=== PATIENT | female | born 1980 | race Two or more races ===

== ENCOUNTER 2017-01-12 12:04 | Emergency (ER) | payer SELFPAY ==
[~2017-01-12] VITALS: Ht 172.7 cm; Wt 60.0 kg
[2017-01-12 12:06] VITALS: BP 105/57; PULSE 78; RESP 20; TEMP 97.8; O2SAT 100
--- NOTE | 2017-01-12 12:13 | PD ---
Physical Exam Date Seen by Provider: Jan 12, 2017 Time Seen by Provider: 12:09 Data Data Last Documented VS Vital Signs Date Time Temp Pulse Resp B/P Pulse Ox O2 Delivery O2 Flow Rate FiO2 01/12/17 12:06 97.8 78 20 105/57 100 Room Air [facility] Supervised Visit with MALLORIE: No Narrative Course 36 YO F with complaint of headache, right sided body pain since 7am. + nausea. - -vomiting. Endorses history of similar headaches. No focal neuro deficits. Vitals reviewed. Awaiting bed placement. Adele Thomas Jan 12, 2017 12:13
--- NOTE | 2017-01-12 13:27 | PD ---
HPI Chief Complaint: Headache Time Seen by Provider: 13:05 Travel History International Travel<30 days: No Contact w/Intl Traveler<30days: No Traveled to known affect area: No History of Present Illness HPI Patient comes in complaining of left frontal headache ongoing for 3 months. Patient reports associated photophobia and nausea. Patient denies any vomiting , radiation of the headache, chest pain, shortness breath, fevers, , loss or change in bowel or bladder, or numbness or tingling anywhere. Patient states headache will go away for approximately an hour at a time and then come back. Patient states she took Advil for it a couple months ago but has not taken any medication regularly as she does not like taking medication. Patient also has concerns over low back pain ongoing for a few months that radiates to her left lower extremity. Pain is worse certain movement. Patient denies anything making the pain better. Patient denies doing anything for this. Patient denies any recent falls, or loss or change in bowel or bladder. Patient states she is just wanting to get checked out for these. Patient was offered an shot blaster service of [employer], but is comfortable with staff interpreting for her. [facility] Past Medical History Medical History: Denies Significant Hx Tetanus Vaccination: < 5 Years Influenza Vaccination: No ?: Not LMP: 12/25/16 Past Surgical History Section: Yes (X2) Social History Alcohol Use: No Tobacco Use: No Allergies-Medications (Allergen,Severity, Reaction): Coded Allergies: No Known Allergies (Unverified , 01/12/17) Reported Meds & Prescriptions Reported Meds & Active Scripts Active Bactrim DS (Sulfamethoxazole-Trimethoprim) 800-160 Mg Tab 1 Tab PO BID Naprosyn (Naproxen) 500 Mg Tab 500 Mg PO Q12HR PRN Review of Systems Except as stated in HPI: all other systems reviewed are Neg Physical Exam Narrative GENERAL: Well-developed, well nourished, in no acute distress, and non-ill appearing. SKIN: Focused skin assessment warm and dry. HEAD: Atraumatic. Normocephalic. EYES: Pupils equal and round. EOMI. No scleral icterus. No injection or drainage. ENT: No nasal bleeding or discharge. Mucous membranes pink and moist. NECK: Trachea midline. Supple. No nuclear rigidity. CARDIOVASCULAR: Dorsal pulses 2+ intact and equal bilaterally. Capillary refill less than 2 seconds. No pedal edema. RESPIRATORY: No accessory muscle use. No respiratory distress. GASTROINTESTINAL: Abdomen soft, non-tender, nondistended. Hepatic and splenic margins not palpable. No pulsatile mass. MUSCULOSKELETAL: No obvious deformities. No clubbing. No cyanosis. No edema. Full range of motion. Patient reports tenderness to palpation over left SI joint. No tenderness crepitus or midline lumbar spine. Straight leg test negative bilaterally. Strength 5 over 5 and equal bilaterally with plantar and dorsiflexion. Sensation intact over first web space and equal bilateral lower extremities. NEUROLOGICAL: Awake and alert. No obvious cranial nerve deficits. Motor grossly within normal limits. Normal speech. PSYCHIATRIC: Appropriate mood and affect; insight and judgment normal. Data Data Last Documented VS Vital Signs Date Time Temp Pulse Resp B/P Pulse Ox O2 Delivery O2 Flow Rate FiO2 01/12/17 14:20 68 01/12/17 12:06 97.8 20 105/[address] Brain W/O Iv Contrast(Rout) (01/12/17 13:17) Ecg Monitoring (01/12/17 13:17) Iv Access Insert/Monitor (01/12/17 13:17) Oximetry (01/12/17 13:17) Sodium Chloride 0.9% Flush (Ns Flush) (01/12/17 13:30) Ketorolac Inj (Toradol Inj) (01/12/17 13:30) Diphenhydramine Inj (Benadryl Inj) (01/12/17 13:30) Metoclopramide Inj (Reglan Inj) (01/12/17 13:30) Ed Urine Pregnancytest Poc (01/12/17 13:17) Urinalysis - C+S If Indicated (01/12/17 13:33) Urine Culture (01/12/17 13:30) Labs Laboratory Tests Test 01/12/17 13:30 Urine Color YELLOW Urine Turbidity CLOUDY Urine pH 8.0 Urine Specific [place] 1.023 Urine Protein 30 mg/dL Urine Glucose (UA) NEG mg/dL Urine Ketones NEG mg/dL Urine Occult Blood NEG Urine Nitrite NEG Urine Bilirubin NEG Urine Urobilinogen LESS THAN 2.0 MG/DL Urine Leukocyte Esterase LARGE Urine RBC 3 /hpf Urine WBC 37 /hpf Urine Squamous Epithelial 15 /hpf Cells Urine Amorphous Sediment OCC Urine Bacteria MANY /hpf Urine Mucus MANY /lpf Microscopic Urinalysis Comment CULTURE INDICATED MDM Medical Decision Making Medical Screen Exam Complete: Yes Emergency Medical Condition: Yes Interpretation(s) CT the head read by the radiologist shows: Negative exam. Differential Diagnosis Headache, migraine, mass, intracranial hemorrhage, sciatica, strain, UTI, other Narrative Course The patients headache appeared nonspecific. Due to patients subjective complaint and presentation, a head CT was performed which was normal and without evidence of blood or mass. The patient looks great, feels better and is in no significant objective discomfort currently. The patient is in no distress and the patients neurological exam is normal, neck is supple and without meningismus. The headache is not consistent with meningitis or infection, nor does it appear consistent with intracranial bleed (SAH etc.), carotid dissection , nor mass by history, examination and evaluation. There is very little clinical evidence to suggest missed hemorrhage on CT and/or sentinel bleed thus an invasive procedure such as a lumbar puncture was not performed. Medication and instructions to rest in a cool dark quite place were discussed with the patient. Also, outpatient follow up was instructed. The patient was instructed to return as needed or if symptoms changed or worsened, fever developed or inability to tolerate fluids. The patient agreed with plan. The patient also presented complaining of back pain with radiation down leg. There was no history of recent fall or trauma. There is also no evidence to suggest vascular pathology such as AAA dissection. No fevers or other evidence to suspect infectious processes, abscess, osteomyelitis etc. The patients neurological exam is normal with normal motor and sensory. There is no saddle paresthesias reported and no bowel or bladder incontinence or retention. I suspect the pain is mechanical in nature with sciatica. Clinical suspicion, plan of care and management was discussed with the patient. The patient was instructed to follow up with their health care provider. The patient was also instructed to return if the pain worsened, changed, or developed weakness or bowel or bladder trouble. The patient agreed with plan. The patient was found incidentally have an UTI. There is no evidence of pyelonephritis. The patient is tolerating fluids and no fever. There is no clinical evidence to suggest atypical cervicitis, PID, appendicitis. The patient was discharged on antibiotics and given warnings to return if condition worsens in any way, fever, vomiting and unable to tolerate medications or fluids , worsening back pain or as needed. The patient was instructed to follow up with their physician. The patient agrees with plan of care. Patient in no obvious distress upon re-evaluation. All pertinent laboratory/ Radiology result(s) discussed with patient. Discussed patient with Dr. Shore, who saw and evaluated the patient and is in agreement with plan of care and disposition. Any questions/concerns in reference to patient diagnosis/ condition discussed and clarified prior to patient's discharge. Reinforced sheer importance of close follow up with patient's primary physician or primary care clinic. Instructed patient to return to ED immediately, if symptoms return/ worsen. Pt showed understanding of above instructions. Further instructions and recommendations were detailed in discharge paperwork. Pt ambulated without difficulty out of ED at discharge. Diagnosis Primary Impression: Headache Qualified Code: R51 - Nonintractable headache, unspecified chronicity pattern , unspecified headache type Additional Impressions: Sciatica Qualified Code: M54.32 - Sciatica of left side UTI (urinary tract infection) Qualified Code: N39.0 - Urinary tract infection without hematuria, site unspecified Referrals: [facility] Patient Instructions: Acute Headache (DC), General Instructions, Sciatica (ED) , Urinary Tract Infection in Women (ED) Additional Instructions: Follow-up with your primary care physician next week for further evaluation. Take all medication as prescribed. Return to the emergency department if symptoms get worse. Med/Other Pt SpecificInfo: Prescription(s) given Scripts Sulfamethoxazole-Trimethoprim (Bactrim DS)800-160 Mg Tab1 Tab PO BID #14 TAB Ref 0 Prov:Shirley Shore MD 01/12/17 Naproxen (Naprosyn)500 Mg [id number] Mg PO Q12HR PRN (PAIN SCALE 1 TO 10) #14 TAB Ref 0 Prov:Shirley Shore MD 01/12/17 Disposition: 01 DISCHARGE HOME Condition: Stable Tyshawn Salomon Jan 12, 2017 13:27
[2017-01-12] MEDS ORDERED: diphenhydrAMINE HCL 50 MG/ML VIAL IVP ONE (13:30)
[2017-01-12] MEDS ORDERED: KETOROLAC TROMETHAMINE 30 MG/ML (IVP) VIAL IVP ONE (13:30)
[2017-01-12] MEDS ORDERED: SODIUM CHLORIDE 0.9% FLUSH 10 ML FLUSH IVF PRN (13:30)
[2017-01-12] MEDS ORDERED: METOCLOPRAMIDE HCL 10 MG/2 ML VIAL IVP ONE (13:30)
[2017-01-12 14:06] LABS: BACTERIA, URINE MANY /hpf; BLOOD, URINE NEG (NEG); COMMENT (UR) CULTURE INDICATED; CULTURE IF INDICATED CULTURE INDICATED; GLUCOSE,URINE NEG (NEG); KETONE, URINE NEG (NEG); MUCUS URINE MANY /lpf (OCC); NITRITE,URINE NEG (NEG); SQUAMOUS EPITHELIAL CELL URINE 15 /hpf (0-5); URINE COLOR YELLOW (YELLW/STRAW)
--- NOTE | 2017-01-12 14:14 | RADRPT ---
EXAM DATE/TIME: 01/12/2017 13:58 [facility] COMPARISON: No previous studies available for comparison. INDICATIONS : Headache and right side of the body weakness. RADIATION DOSE: 56.8 CTDIvol (mGy) MEDICAL HISTORY : None SURGICAL HISTORY : section. ENCOUNTER: Initial ACUITY: 1 day PAIN SCALE: 3/10 LOCATION: cranial TECHNIQUE: Multiple contiguous axial images were obtained of the head. Using automated exposure control and adj ustment of the mA and/or kV according to patient size, radiation dose was kept as low as reasonably a chievable to obtain optimal diagnostic quality images. FINDINGS: CEREBRUM: The ventricles are normal for age. No evidence of midline shift, mass lesion, hemorrhage or acute in farction. No extra-axial fluid collections are seen. POSTERIOR FOSSA: The cerebellum and brainstem are intact. The 4th ventricle is midline. The cerebellopontine angle i s unremarkable. EXTRACRANIAL: The visualized portion of the orbits is intact. SKULL: The calvaria is intact. No evidence of skull fracture. CONCLUSION: Negative exam. Pierre Cole MD on January 12, 2017 at 14:11 Board Certified Radiologist. This report was verified electronically.
[2017-01-12 14:20] VITALS: PULSE 68
[2017-01-12] MEDS ORDERED: NAPR500 PO (14:33)
[2017-01-12] MEDS ORDERED: BACT800T5 PO (14:33)
--- NOTE | 2017-01-12 14:58 | PD ---
Data Data Last Documented VS Vital Signs Date Time Temp Pulse Resp B/P Pulse Ox O2 Delivery O2 Flow Rate FiO2 01/12/17 14:20 68 01/12/17 12:06 97.8 20 105/[address] Brain W/O Iv Contrast(Rout) (01/12/17 13:17) Ecg Monitoring (01/12/17 13:17) Iv Access Insert/Monitor (01/12/17 13:17) Oximetry (01/12/17 13:17) Sodium Chloride 0.9% Flush (Ns Flush) (01/12/17 13:30) Ketorolac Inj (Toradol Inj) (01/12/17 13:30) Diphenhydramine Inj (Benadryl Inj) (01/12/17 13:30) Metoclopramide Inj (Reglan Inj) (01/12/17 13:30) Ed Urine Pregnancytest Poc (01/12/17 13:17) Urinalysis - C+S If Indicated (01/12/17 13:33) Urine Culture (01/12/17 13:30) Labs Laboratory Tests Test 01/12/17 13:30 Urine Color YELLOW Urine Turbidity CLOUDY Urine pH 8.0 Urine Specific [place] 1.023 Urine Protein 30 mg/dL Urine Glucose (UA) NEG mg/dL Urine Ketones NEG mg/dL Urine Occult Blood NEG Urine Nitrite NEG Urine Bilirubin NEG Urine Urobilinogen LESS THAN 2.0 MG/DL Urine Leukocyte Esterase LARGE Urine RBC 3 /hpf Urine WBC 37 /hpf Urine Squamous Epithelial 15 /hpf Cells Urine Amorphous Sediment OCC Urine Bacteria MANY /hpf Urine Mucus MANY /lpf Microscopic Urinalysis Comment CULTURE INDICATED MDM Supervised Visit with MALLORIE: Yes Narrative Course The history, exam, and medical decision-making in the associated midlevel provider note were completed with my assistance. I reviewed and agree with the findings presented. I attest that I had a [id number] encounter with the patient on the same day, and personally performed and documented my assessment and findings in the medical record. *My assessment and Findings: This is a 36-year-old female who presents to the emergency department for headache pain was on for several months. She was offered a formal batchmaker but declined and wanted her friend to translate for her. She has a grossly normal neurologic exam. CT of the head was unremarkable. Patient's urinalysis is contaminated but suggests urinary tract infection. She'll be discharged on antibiotics. Diagnosis Primary Impression: Headache Qualified Code: R51 - Nonintractable headache, unspecified chronicity pattern , unspecified headache type Additional Impressions: Sciatica Qualified Code: M54.32 - Sciatica of left side UTI (urinary tract infection) Qualified Code: N39.0 - Urinary tract infection without hematuria, site unspecified Referrals: [facility] Patient Instructions: General Instructions, Urinary Tract Infection in Women ( ED), Sciatica (ED), Acute Headache (DC) Additional Instruction: Follow-up with your primary care physician next week for further evaluation. Take all medication as prescribed. Return to the emergency department if symptoms get worse. Scripts Sulfamethoxazole-Trimethoprim (Bactrim DS)800-160 Mg Tab1 Tab PO BID #14 TAB Ref 0 Prov:Shirley Shore MD 01/12/17 Naproxen (Naprosyn)500 Mg [id number] Mg PO Q12HR PRN (PAIN SCALE 1 TO 10) #14 TAB Ref 0 Prov:Shirley Shore MD 01/12/17 Disposition: 01 DISCHARGE HOME Condition: Stable Shirley Shore MD Jan 12, 2017 14:57
== END 2017-01-12 15:00 | disposition home or self-care (01) ==
LOC: NEPC 12:04
DX: R51 Headache (principal); M54.32 Sciatica, left side; N39.0 Urinary tract infection, site not specified; B96.89 Other specified bacterial agents as the cause of diseases classified elsewhere
CPT/HCPCS: 70450; 81001; 84703; 87086; 96374; 96375; 99285; J1200; J1885; J2765